=== PATIENT | female | born 2000 | race Two or more races ===

== ENCOUNTER 2019-07-10 22:35 | Observation (INO) | payer MEDICAID | END 2019-07-10 23:30 | disposition home or self-care (01) | DRG 566 | LOC: LDRP 22:35 | PROVIDERS: ADMIT Specialist; ATTEND Specialist | DX: O36.8130 Decreased fetal movements, third trimester, not applicable or unspecified (principal); O43.93 Unspecified placental disorder, third trimester; Z3A.38 38 weeks gestation of pregnancy | CPT/HCPCS: 59025; 81002; G0378 ==

== ENCOUNTER 2019-07-16 04:19 | Inpatient (IN) | payer MEDICAID ==
[~2019-07-16] VITALS: Ht 162.6 cm; Wt 103.0 kg
[2019-07-16] MEDS ORDERED: PREN-96 PO (05:03)
[2019-07-16] MEDS ORDERED: LACT. RINGERS/OXYTOCIN 20UNITS 1,000 ML IV SCH (05:24)
[2019-07-16] MEDS ORDERED: LACTATED RINGER'S 1,000 ML IV SCH (05:24)
[2019-07-16] MEDS ORDERED: PHISODERM TOP SOLN 240ML BTL TOP PRN (05:30)
[2019-07-16] MEDS ORDERED: LIDOCAINE 2%HCL (LOCAL ANESTH.) INJ 20ML MDV ID ONE (05:30)
[2019-07-16] MEDS ORDERED: CARBOPROST TROMETHAMINE 250 MCG/1ML VIAL IM PRN (05:30)
[2019-07-16] MEDS ORDERED: DERMOPLAST 60ML BOTTLE TOP PRN (05:30)
[2019-07-16] MEDS ORDERED: METHYLERGONOVINE MALEATE 0.2 MG/ML AMP IM PRN (05:30)
[2019-07-16 06:05] LABS: Basophils # (auto) 0 uL; Basophils % (auto) 0.1 % (0.0-2.0); Eosinophils # (auto) 0 uL; Eosinophils % (auto) 0.3 % (0.0-7.0); Hemoglobin 12.4 g/dL (12.2-16.2); Lymphocytes # (auto) 1.4 uL; Mean Corpuscular Hemoglobin 30.5 pg (28.0-32.0); Mean Corpuscular Hgb Conc. 34.6 g/dL (32.0-36.0); Mean Corpuscular Volume 88.1 fL (80.0-100.0); Monocytes # (auto) 0.9 uL; Monocytes % (auto) 8.5 % (0.0-12.0); Neutrophils # (auto) 8.5 uL; Neutrophils % (auto) 78.1 % (37.0-80.0); Platelet Count (auto) 121 10^3/uL (140-450); Red Blood Cells 4.08 10^6/uL (4.0-5.20); Red Cell Distribution Width 12.8 % (11.8-14.3); White Blood Cell 10.9 10^3/uL (4.4-10.8)
[2019-07-16 06:18] LABS: Urine Bacteria MANY /hpf (None Seen); Urine Blood 1+ /uL (Negative); Urine Mucus FEW (None Seen); Urine Specific Gravity 1.013 (1.001-1.035); Urine WBC 26 /hpf (0 - 5)
[2019-07-16 06:25] LABS: INR 0.94 (0.9-1.15); Partial Thromboplastin Time 27.1 sec (23.64-32.05)
[2019-07-16 06:32] LABS: Albumin 2.6 g/dL (3.4-5.0); Calcium 8.5 mg/dL (8.5-10.1); Potassium 3.3 mmol/L (3.5-5.1)
[2019-07-16 06:34] LABS: Alcohol, Urine < 3.0 mg/dL (0-5); Amphetamine Screen, Urine NEGATIVE (NEGATIVE); Barbiturate Scree,Urine NEGATIVE (NEGATIVE); Benzodiazephine Screen, Urine NEGATIVE (NEGATIVE); Cannabinoid Screen, Urine NEGATIVE (NEGATIVE); Cocaine Screen, Urine NEGATIVE (NEGATIVE); Opiate Scree,Urine NEGATIVE (NEGATIVE); Phencyclidine Screen, Urine NEGATIVE (NEGATIVE)
[2019-07-16 06:35] LABS: Bilirubin, Total 0.2 mg/dL (0.2-1.0); Total Protein 6.1 g/dL (6.4-8.2)
[2019-07-16 06:55] LABS: Uric Acid 3.5 mg/dL (2.6-6.0)
[2019-07-16] MEDS: WITCH HAZEL-GLYCERIN PAD TOP PRN (08:56)
[2019-07-16] MEDS ORDERED: fentaNYL CITRATE 100 MCG/2 ML VL IV ONE ×2 (12:15→13:45)
[2019-07-16] MEDS ORDERED: ePHEDrine SULFATE 50 MG/ML AMP IV ONE ×2 (12:15→13:45)
[2019-07-16] MEDS ORDERED: TERBUTALINE SULFATE 1 MG/ML 1ML VIAL SC ONE (12:15)
[2019-07-16] MEDS ORDERED: NALOXONE HCL 0.4 MG/ML VIAL IV ONE ×2 (12:15→13:45)
[2019-07-16] MEDS ORDERED: LIDOCAINE HCL 2 %PF INJ 10ML AMP IJ ONE (12:15)
[2019-07-16] MEDS ORDERED: LIDOCAINE W/ EPINEPHRINE 1 % INJ 30ML IJ ONE (12:15)
[2019-07-16] MEDS ORDERED: fentaNYL 200mCg/100ml W ROPIVA 100 ML EPI SCH ×2 (12:15→13:45)
[2019-07-16] MEDS ORDERED: BUTORPHANOL TARTRATE 2 MG/1 ML VIAL IM PRN (13:00)
--- NOTE | 2019-07-16 13:24 | NUR ---
Epidural scanned multiple times and unable to input in eMAR, stating ERROR in meditech. Epidural bag witness and verified with Dr De Paz and Marlon Mercer RN. Pump rate at to 8ml/hr by Dr De Paz
[2019-07-16] MEDS ORDERED: LACTATED RINGER'S 500 ML IV ONE (13:33)
[2019-07-16] MEDS ORDERED: SODIUM CHLORIDE 0.9% 500 ML IV PRN (13:33)
[2019-07-16] MEDS ORDERED: ACETAMINOPHEN 325 MG TAB PO PRN (17:45)
[2019-07-16] MEDS: IBUPROFEN 600 MG TAB PO PRN ×2 (19:09→23:06)
[2019-07-16 23:00] VITALS: BP 122/73
[2019-07-17] MEDS: IBUPROFEN 600 MG TAB PO PRN ×4 (02:26→15:24)
[2019-07-17 02:50] VITALS: BP 116/65
[2019-07-17 07:20] VITALS: BP 121/62
[2019-07-17] MEDS: WITCH HAZEL-GLYCERIN PAD TOP PRN (09:31)
[2019-07-17] MEDS ORDERED: POTASSIUM CHL 20 Meq TABLET PO ONE (09:45)
[2019-07-17 11:20] VITALS: BP 128/60
[2019-07-17 15:15] VITALS: BP 127/78
[2019-07-17 19:00] VITALS: BP 128/58
--- NOTE | 2019-07-17 19:30 | NUR ---
Discharge: Discharge instructions given as ordered. Pt encouraged to follow up with [facility] as instructed. All questions and concerns addressed. Patient verbalized understanding. Medication reconciliation completed and copy given to patient. All required/requested vaccines given and copies of vaccinations given to patient. Patient encouraged to prepare to depart unit.
[2019-07-17 19:55] VITALS: BP 128/58
--- NOTE | 2019-07-17 19:55 | NUR ---
Discharge: Patient ambulates to vehicle per pt request with all personal belongings, accompanied by staff and family member. No distress noted at time of departure, no adverse changes in status since initial assessment.
[2019-07-18 05:06] LABS: RPR Non Reactive (Non Reactive)
== END 2019-07-17 19:55 | disposition home or self-care (01) | DRG 560 ==
LOC: LDRP 04:19 → OBSVTOIN 05:16 → LDRP 05:17
PROVIDERS: ADMIT Specialist; ATTEND Obstetrics & Gynecology
PROC: 10E0XZZ Delivery of Products of Conception, External Approach (ICD-10-PCS; principal; 2019-07-16)
PROC: 3E0R3BZ Introduction of Anesthetic Agent into Spinal Canal, Percutaneous Approach (ICD-10-PCS; 2019-07-16)
PROC: 00HU33Z Insertion of Infusion Device into Spinal Canal, Percutaneous Approach (ICD-10-PCS; 2019-07-16)
DX: O80 Encounter for full-term uncomplicated delivery (principal); Z37.0 Single live birth; Z3A.39 39 weeks gestation of pregnancy
CPT/HCPCS: 36415; 51702; 59025; 59409; 62282; 80053; 80307; 81001; 81002; 84112; 84550; 85025; 85610; 85730; 86592; 86850; 86900; 86901; 94760; 94762; 96365; 96366; G0378; J2590

== ENCOUNTER 2021-08-03 13:37 | Observation (INO) | payer MEDICAID ==
[~2021-08-03] VITALS: Ht 162.6 cm; Wt 101.2 kg
[~2021-08-03 13:37] MED LIST: PREN-96 PO
== END 2021-08-03 15:10 | disposition home or self-care (01) ==
LOC: LDRP 13:37
PROVIDERS: ADMIT Obstetrics & Gynecology; ATTEND Obstetrics & Gynecology
DX: O26.893 Other specified pregnancy related conditions, third trimester (principal); Z20.822 Contact with and (suspected) exposure to COVID-19; R51.9 Headache, unspecified; Z3A.32 32 weeks gestation of pregnancy
CPT/HCPCS: 36415; 59025; 81002; 87426; G0378; G0379

== ENCOUNTER 2021-08-23 18:10 | Observation (INO) | payer MEDICAID ==
[~2021-08-23] VITALS: Ht 162.6 cm; Wt 103.9 kg
[2021-08-23] MEDS ORDERED: LACTATED RINGER'S 1,000 ML IV SCH (18:30)
[2021-08-23] MEDS ORDERED: LACTATED RINGER'S 1,000 ML IV ONE (18:30)
[2021-08-23] MEDS: TERBUTALINE SULFATE 1 MG/ML 1ML VIAL SC SCH ×2 (18:46→19:24)
[2021-08-23 20:07] LABS: Urine Bacteria FEW /hpf (None Seen); Urine Blood Negative /uL (Negative); Urine Specific Gravity 1.005 (1.001-1.035); Urine WBC 2 /hpf (0 - 5)
[2021-08-23 20:15] LABS: Alcohol, Urine < 3.0 mg/dL (0-10); Amphetamine Screen, Urine NEGATIVE (NEGATIVE); Barbiturate Scree,Urine NEGATIVE (NEGATIVE); Benzodiazephine Screen, Urine NEGATIVE (NEGATIVE); Cannabinoid Screen, Urine NEGATIVE (NEGATIVE); Cocaine Screen, Urine NEGATIVE (NEGATIVE); Opiate Scree,Urine NEGATIVE (NEGATIVE); Phencyclidine Screen, Urine NEGATIVE (NEGATIVE)
== END 2021-08-23 20:45 | disposition home or self-care (01) ==
LOC: LDRP 18:10
PROVIDERS: ADMIT Obstetrics & Gynecology; ATTEND Obstetrics & Gynecology
DX: O26.893 Other specified pregnancy related conditions, third trimester (principal); R10.9 Unspecified abdominal pain; O42.913 Preterm premature rupture of membranes, unspecified as to length of time between rupture and onset of labor, third trimester; O62.9 Abnormality of forces of labor, unspecified; Z3A.35 35 weeks gestation of pregnancy
CPT/HCPCS: 59025; 80307; 81001; 81002; 84112; 94760; 96360; 96361; 96372; G0378; J3105; Q0114

== ENCOUNTER 2021-09-23 14:12 | Observation (INO) | payer MEDICAID | END 2021-09-23 16:27 | disposition home or self-care (01) | LOC: LDRP 14:12 | PROVIDERS: ADMIT Obstetrics & Gynecology; ATTEND Obstetrics & Gynecology | DX: O42.92 Full-term premature rupture of membranes, unspecified as to length of time between rupture and onset of labor (principal); O26.893 Other specified pregnancy related conditions, third trimester; N89.8 Other specified noninflammatory disorders of vagina; Z3A.39 39 weeks gestation of pregnancy | CPT/HCPCS: 59025; 76818; 81002; 84112; 94760; G0378; Q0114 ==

== ENCOUNTER 2021-09-24 07:18 | Observation (INO) | payer MEDICAID | END 2021-09-24 11:33 | disposition home or self-care (01) | LOC: LDRP 09:00 | PROVIDERS: ADMIT Obstetrics & Gynecology; ATTEND Obstetrics & Gynecology | DX: O62.9 Abnormality of forces of labor, unspecified (principal); O26.893 Other specified pregnancy related conditions, third trimester; N89.8 Other specified noninflammatory disorders of vagina; O48.0 Post-term pregnancy; O42.92 Full-term premature rupture of membranes, unspecified as to length of time between rupture and onset of labor; Z3A.40 40 weeks gestation of pregnancy | CPT/HCPCS: 59025; 76818; 84112; G0378; Q0114; 81002 ==

== ENCOUNTER 2021-09-26 09:50 | Inpatient (IN) | payer MEDICAID ==
[~2021-09-26] VITALS: Ht 162.6 cm; Wt 110.2 kg
[2021-09-26] MEDS ORDERED: PHISODERM TOP SOLN 240ML BTL TOP PRN (12:00)
[2021-09-26] MEDS ORDERED: LIDOCAINE 2%HCL (LOCAL ANESTH.) INJ 20ML MDV IJ PRN (12:00)
[2021-09-26] MEDS ORDERED: BUTORPHANOL TARTRATE 2 MG/1 ML VIAL IV PRN ×2 (12:00)
[2021-09-26] MEDS ORDERED: miSOPROStol 50 MCG per PRE-CUT 1/2 TAB PO PRN ×4 (12:00→13:30)
[2021-09-26] MEDS ORDERED: PROMETHAZINE HCL 25 MG/ML 1ML IV PRN (12:00)
[2021-09-26 12:50] LABS: Basophils # (auto) 0 10 ^3/uL (0-0.2); Basophils % (auto) 0.4 % (0.0-2.0); Eosinophils # (auto) 0 10 ^3/uL (0-0.8); Eosinophils % (auto) 0.2 % (0.0-7.0); Hematocrit 37.7 % (36.0-46.0); Hemoglobin 12.8 g/dL (12.2-16.2); Lymphocytes # (auto) 1.6 10 ^3/uL (0.4-5.4); Lymphocytes % (auto) 17.6 % (10.0-50.0); Mean Corpuscular Hemoglobin 29.6 pg (28.0-32.0); Mean Corpuscular Volume 87.1 fL (80.0-100.0); Monocytes # (auto) 0.7 10 ^3/uL (0-1.3); Monocytes % (auto) 7.9 % (0.0-12.0); Neutrophils # (auto) 6.7 10 ^3/uL (1.6-8.6); Neutrophils % (auto) 73.9 % (37.0-80.0); Nucleated Red Blood Cells % 0.1 %; Red Blood Cells 4.32 10^6/uL (4.0-5.20); Red Cell Distribution Width 13.6 % (11.8-14.3); White Blood Cell 9.1 10^3/uL (4.4-10.8)
[2021-09-26 13:10] LABS: Albumin 2.8 g/dL (3.4-5.0); Calcium 8.6 mg/dL (8.5-10.1); Potassium 3.9 mmol/L (3.5-5.1)
[2021-09-26 13:11] LABS: INR 0.92 (0.9-1.15); Partial Thromboplastin Time 27.9 sec (23.6-33.0)
[2021-09-26 13:15] LABS: Bilirubin, Total 0.2 mg/dL (0.2-1.0); Total Protein 6.7 g/dL (6.4-8.2)
[2021-09-26 13:19] LABS: Urine Bacteria NONE SEEN /hpf (None Seen); Urine Blood Negative /uL (Negative); Urine Specific Gravity 1.004 (1.001-1.035); Urine WBC <1 /hpf (0 - 5)
[2021-09-26 13:23] LABS: Amphetamine Screen, Urine NEGATIVE (NEGATIVE); Barbiturate Scree,Urine NEGATIVE (NEGATIVE); Benzodiazephine Screen, Urine NEGATIVE (NEGATIVE); Cannabinoid Screen, Urine NEGATIVE (NEGATIVE); Cocaine Screen, Urine NEGATIVE (NEGATIVE); Opiate Scree,Urine NEGATIVE (NEGATIVE); Phencyclidine Screen, Urine NEGATIVE (NEGATIVE)
[2021-09-26] MEDS: WITCH HAZEL-GLYCERIN PAD TOP PRN (13:43)
[2021-09-26] MEDS: DERMOPLAST 60ML BOTTLE TOP PRN (13:44)
[2021-09-26] MEDS: LACTATED RINGER'S 1,000 ML IV SCH ×2 (16:14→18:59)
[2021-09-26] MEDS ORDERED: ePHEDrine SULFATE 50 MG/ML AMP IV ONE (17:30)
[2021-09-26] MEDS ORDERED: fentaNYL CITRATE 100 MCG/2 ML VL IV ONE (17:30)
[2021-09-26] MEDS ORDERED: NALOXONE HCL 0.4 MG/ML VIAL IV ONE (17:30)
[2021-09-26] MEDS ORDERED: LACTATED RINGER'S 1,000 ML IV ONE (17:30)
[2021-09-26] MEDS ORDERED: ROPIVACAINE HCL 200 ML EPI SCH ×2 (17:30→18:45)
[2021-09-26] MEDS ORDERED: LACT. RINGERS/OXYTOCIN 20UNITS 500 ML IV ONE ×2 (20:30→21:00)
[2021-09-26] MEDS ORDERED: TERBUTALINE SULFATE 1 MG/ML 1ML VIAL SC PRN (20:30)
[2021-09-26] MEDS ORDERED: LACT. RINGERS/OXYTOCIN 20UNITS 1,000 ML IV SCH (20:30)
[2021-09-27] MEDS ORDERED: ONDANSETRON ODT 4 MG TAB PO PRN
[2021-09-27] MEDS: IBUPROFEN 600 MG TAB PO PRN ×4 (00:11→21:05)
[2021-09-27] MEDS ORDERED: METHYLERGONOVINE MALEATE 0.2 MG/ML AMP IM ONE (00:15)
[2021-09-27] MEDS ORDERED: LACT. RINGERS/OXYTOCIN 20UNITS 500 ML IV ONE ×2 (00:30)
[2021-09-27 03:00] VITALS: BP 120/63
[2021-09-27 07:30] VITALS: BP 109/62
[2021-09-27 08:06] LABS: RPR Non Reactive (Non Reactive)
[2021-09-27] MEDS: ACETAMINOPHEN 325 MG TAB PO PRN ×3 (11:28→22:15)
[2021-09-27 11:30] VITALS: BP 115/69
[2021-09-27 14:56] VITALS: BP 118/61
[2021-09-27] MEDS: DERMOPLAST 60ML BOTTLE TOP PRN (15:06)
[2021-09-27] MEDS: WITCH HAZEL-GLYCERIN PAD TOP PRN (15:06)
[2021-09-27 19:00] VITALS: BP 107/64
[2021-09-27] MEDS ORDERED: DOCUSATE SOD 100 MG CAP PO SCH (22:00)
[2021-09-27 23:00] VITALS: BP 105/62
[2021-09-28 03:30] VITALS: BP 100/57
[2021-09-28] MEDS: IBUPROFEN 600 MG TAB PO PRN (04:02)
[2021-09-28 06:15] VITALS: BP 111/72
[2021-09-28] MEDS ORDERED: MEASLES, MUMPS & RUBELLA VAC(MMRII) 0.5ML SC ONE (08:45)
== END 2021-09-28 10:29 | disposition home or self-care (01) | DRG 560 ==
LOC: LDRP 09:50 → OBSVTOIN 11:49 → LDRP 12:03
PROVIDERS: ADMIT Obstetrics & Gynecology; ATTEND Obstetrics & Gynecology
PROC: 10E0XZZ Delivery of Products of Conception, External Approach (ICD-10-PCS; principal; 2021-09-27)
PROC: 0HQ9XZZ Repair Perineum Skin, External Approach (ICD-10-PCS; 2021-09-27)
PROC: 3E0R3BZ Introduction of Anesthetic Agent into Spinal Canal, Percutaneous Approach (ICD-10-PCS; 2021-09-27)
PROC: 00HU33Z Insertion of Infusion Device into Spinal Canal, Percutaneous Approach (ICD-10-PCS; 2021-09-27)
DX: O48.0 Post-term pregnancy (principal); Z37.0 Single live birth; O70.0 First degree perineal laceration during delivery; Z20.822 Contact with and (suspected) exposure to COVID-19; Z88.8 Allergy status to other drugs, medicaments and biological substances; Z91.040 Latex allergy status; Z3A.40 40 weeks gestation of pregnancy
CPT/HCPCS: 36415; 59025; 59409; 62282; 76818; 80053; 80307; 81001; 81002; 85025; 85610; 85730; 86592; 86850; 86900; 86901; 94760; 94762; 96360; 96361; 96365; 96366; 96372; G0378; J2590